=== PATIENT | female | born 1955 | race Caucasian/White ===

== ENCOUNTER 2017-03-22 06:50 | Day surgery (SDC) | payer BC ==
--- NOTE | 2017-02-20 12:02 | HP ---
Chief Complaint - Chief Complaint Date of Service: 02/20/17 Chief Complaint: need a colonoscopy History of Present Illness: 61 yo female who has a family history of three maternal uncles and aunts with colon cancer and a cousin. She has had a colonoscopy many years ago and had polyps removed. Follow up scope was negative. She does not believe she has had one for over ten years. No changes in BMs and no blood in stools. No weight loss. - Patient's Past Medical History Patient History - Medical: Headache, Osteoarthritis - but not diagnosed, Other - right shoulder torn rotator cuff Patient History - Cardiac/Respiratory: No pertinent hx Patient History - Cancer: No Hx of Cancer Patient History - Surgical Procedures: Cholecystectomy - 25 years ago, Colonoscopy, Tubal Ligation Patient History - Other: None LMP (females 10-50): Menopausal - Family History Family History:: no untoward family reactions to anesthesia, no familial bleeding tendencies, no family history of clotting disorders, no family history of premature - Family History Mother Family History - Medical: Family History - Cardiac/Respiratory: Myocardial Infarction Father Family History - Medical: Family History - Cancer: Lung - Social History Abuse History: No History of abuse Psych History: No pertinent hx Does anyone smoke in the home?: No Smoking Status: Never smoker Alcohol Use: occasionally Drug Use: none - Immunizations Immunizations Up to Date: Yes Hx Pneumococcal Vaccination: Yes History of Influenza Vaccine: Yes Review Of Systems (GEN) - Review of Systems Generalized/Overall Review: Absent: Weakness, Chills, Fever, Malaise, Diaphoresis, Fatigue, Weight loss EENTM: Absent: Tearing, Double Vision, Nose Congestion, Throat Swelling Respiratory: Absent: Shortness of Breath, Stridor, Wheezing Cardiac: Absent: Chest Pain, Edema, Palpitations Abdominal: Absent: Nausea, Hematemesis, Abdominal Pain, Constipation, Diarrhea, Bright blood from rectum Genitourinary: Absent: Burning, Itching, Urgency, Frequency Musculoskeletal: Present: Joint Pain, Back Pain. Absent: Joint Swelling, Muscle Pain, Neck Pain Neurological: Absent: Headache, Anxiety, Depressed, Emotional Problems Skin: Absent: Dryness, Lesions, Rash Allergies/Adverse Reactions: Allergies Allergy/AdvReac Type Severity Reaction Status Date / Time No Known Allergies Allergy Unverified 02/14/17 10:36 Home Medications: HOME MEDICATIONS NK [No Home Medication] 02/14/17 [Last Taken Unknown] Exam - Exam Vital Signs: Ht 158cm Wt 87 kg BP 122/80 HR 75 Afebrile Constitutional: Present: Alert, Oriented x3, Cooperative, No distress, Overweight, Looks Younger than stated age ENT Exam: Present: normal ENT inspection, hearing grossly normal Eye Exam: bilateral eye: normal inspection Breasts: Present: Exam deferred Respiratory: Present: lungs clear, normal breath sounds, no respiratory distress , no accessory muscle use Cardiovascular/Chest: Present: normal peripheral pulses, regular rate, rhythm, no edema, no JVD, no murmur Abdomen: Present: Normal bowel sounds, soft, nontender /Rectal: Present: Exam deferred Extremity: Present: normal range of motion, non-tender Skin Exam: Present: normal color, warm/dry Neurologic: Present: no motor/sensory deficits, alert, normal mood/affect Appearance: Present: appropriate appearance, appropriate insight, neat, no memory impairment Eye contact: Present: cooperative, good eye contact, normal speech Thoughts: Present: normal thought pattern, no apparent hallucination Assessment/Plan - Narrative Narrative: She needs a colonoscopy. RBIC discussed. SUPREP discussed. Scheduled at her convenience. Booklet reviewed and given. Consent signed. - Assessment/Plan (1) Colon cancer screening Problem: Acute (2) Family history of colon cancer Problem: Chronic (3) Rotator cuff (capsule) sprain Problem: Acute Qualifiers: Laterality: right
[~2017-03-22 06:50] MED LIST: RINGER'S SOLUTION,LACTATED 1,000 ML IV PRN
[2017-03-22] MEDS ORDERED: RINGER'S SOLUTION,LACTATED 1,000 ML IV ONE (08:02)
[2017-03-22] MEDS ORDERED: RINGER'S SOLUTION,LACTATED 1,000 ML IV PRN (08:29)
--- NOTE | 2017-03-22 08:32 | OR ---
Operative Report - Dictated Report Narrative: DATE OF PROCEDURE: 03/22/2017 PREOPERATIVE DIAGNOSIS: #1 Screening colonoscopy #2 family history colon cancer POSTOPERATIVE DIAGNOSIS: #1 Screening colonoscopy #2 scattered sigmoid diverticulosis OPERATION: Colonoscopy SURGEON: Jitendra Leon M.D. [facility] ANESTHESIA : Cyndee Sharif CRNA sedation INDICATIONS: This is 61 year old female who presents for a screening colonoscopy. I have discussed the risks, benefits, indications, and contraindications for colonoscopy with the possibility of biopsy and/or polypectomy. She understands, agrees, and wishes to proceed. She has undergone a SUPREP and has tolerated it well. PROCEDURE: The patient was brought to the operating theater and placed into the left lateral decubitus position. The patient underwent sedation per anesthesia , and a digital rectal exam was performed. This was noted to be unremarkable. The patient was noted to have no internal or external hemorrhoids. The Olympus video colonoscope was introduced and advanced into the rectum. The rectum was normal in appearance. The scope was then advanced through the sigmoid, where some scattered diverticular disease was noted. The scope was then advanced to the cecum using standard reduction techniques. The appendiceal orifice was noted. The ileocecal valve was noted. The prep appeared to be excellent with a Fabens prep score of 9. The scope was withdrawn slowly as the ascending, transverse, descending, and sigmoid colon were examined in a circumferential fashion. The scope was brought back into the rectum where it was retroflexed in the lower rectum was examined. The air was decompressed, and the scope was then removed. Withdrawal time was 7 minutes. POSTOPERATIVE CONDITION: The patient was awakened and taken to the ambulatory surgery center in good condition. No complications were encountered. FINDINGS: Scattered diverticulosis, no signs of polyps or tumors Specimens: None EBL: 0 The findings were discussed with the patient. I recommend a follow-up colonoscopy in 5 years for screening purposes. Diverticulosis booklet was reviewed and given to patient.
[2017-03-22 09:18] VITALS: BP 127/78
== END 2017-03-22 06:51 | disposition home or self-care (01) ==
LOC: AMB 06:50
PROVIDERS: ATTEND Surgery
PROC: 0DJD8ZZ Inspection of Lower Intestinal Tract, Via Natural or Artificial Opening Endoscopic (ICD-10-PCS; principal; 2017-03-22 08:05)
DX: Z12.11 Encounter for screening for malignant neoplasm of colon (principal); K57.30 Diverticulosis of large intestine without perforation or abscess without bleeding; Z80.0 Family history of malignant neoplasm of digestive organs; Z68.34 Body mass index [BMI] 34.0-34.9, adult

== ENCOUNTER 2017-09-08 09:51 | Emergency (ER) | payer BC ==
--- NOTE | 2017-09-08 10:25 | ERNOTE ---
Dizziness ER Record Date of Service: 09/08/17 Presenting Symptoms: dizziness, other - Headache Time Seen by Provider: 09/08/17 10:04 Source: patient, family, old records Exam Limitations: no limitations Immunizations: IMMUNIZATION HX Immunizations Up to Date No History of Influenza Vaccine No Hx Pneumococcal Vaccination No Allergies/Adverse Reactions: Allergies Allergy/AdvReac Type Severity Reaction Status Date / Time No Known Allergies Allergy Verified 09/08/17 10:05 Home Medications: HOME MEDICATIONS NK [No Home Medication] 09/08/17 [Last Taken Unknown] - History of Present Illness Narrative: Patient states since Saturday evening she has had a headache 05/30 in the back of her head with dizziness. States everytime she gets up or moves her head too quickly the room will begin spinning. Date (Duration): 09/06/17 Timing and Duration: cannot confirm onset Episodes lasting:: Headache and dizziness has lasted since that time. Noted on awakening:: No Severity: max: severe Severity: currently: moderate Associated Symptoms: Present: headache, light headedness, none Sense of movement: Present: spinning Decreased ability to stand/walk:: Present: off balance Usually:: Present: walks w/o assistance Modifying Factors - (Improves): Reports: nothing Modifying Factors - (Worsens): Reports: changing position, movement of head Review of Systems - Narrative Narrative: Denies any ear pain, dyspnea, CP, or abdominal pain. States her vision is blurred with quick movements of her head lasting seconds. States she has not had a headache since her stroke this past summer and just feels as if something is not right. Describes the headache as a throbbing in the back of her head. Does not go down into the neck. Denies any fever or muscle aches. - Review of Systems Constitutional: Present: no symptoms reported EYE: Present: blurred vision, other - Only with quick movement. ENT: Present: no symptoms reported Respiratory: Present: no symptoms reported Cardiology: Present: no symptoms reported Gastrointestinal/Abdominal: Present: no symptoms reported Genitourinary: Present: no symptoms reported Musculoskeletal: Present: no symptoms reported Skin: Present: no symptoms reported Neurological: Present: headache, other - Constant dizziness with the room spinning when she moves her body or head suddenly. Endocrine: Present: no symptoms reported, other Hematologic/Lymphatic: Present: no symptoms reported - Patient's Past Medical History Patient History - Medical: GERD, Headache, Kidney stone, Osteoarthritis Patient History - Cardiac/Respiratory: CVA/Stroke Patient History - Cancer: No Hx of Cancer Patient History - Surgical Procedures: Cholecystectomy, Colonoscopy, Total Knee Replacement, Tubal Ligation, T & A Patient History - Other: None LMP (females 10-50): post - Family History Mother Family History - Medical: , Diabetes Type 2 Family History - Cardiac/Respiratory: Arrhythmias, Hypertension, Myocardial Infarction Family History - Cancer: No pertinent family hx Father Family History - Medical: , Arthritis Family History - Cardiac/Respiratory: No pertinent hx Family History - Cancer: Lung Brother Family History - Medical: No pertinent hx Family History - Cardiac/Respiratory: No pertinent hx Family History - Cancer: No pertinent family hx Sister Family History - Medical: No pertinent hx Family History - Cardiac/Respiratory: No pertinent hx Family History - Cancer: No pertinent family hx - Social History Living Situations: home Abuse History: No History of abuse Psych History: No pertinent hx Smoking Status: Never smoker Alcohol Use: occasionally Drug Use: none - Immunizations Immunizations Up to Date: No Hx Pneumococcal Vaccination: No History of Influenza Vaccine: No Physical Exam - Physical Exam General Appearance: Present: wd/wn, alert, other - More of a flat affect possibly residual from previous stroke. Head Exam: Present: normal inspection, no evidence of injury, no tenderness w palpation Eye Exam: Normal inspection: bilateral, PERRL: bilateral, EOMI: bilateral Neck: Present: normal inspection, nontender, supple, full range of motion Respiratory: Present: no respiratory distress, normal breath sounds, no accessory muscle use, chest nontender, lungs clear Cardiovascular/Chest: Present: regular rate, rhythm, no murmur, normal peripheral pulses Peripheral Pulses: N=norm/S=strong/W=weak/B=bound/A=absent: Radial (R): Normal, Radial (L): Normal Gastrointestinal/Abdominal: Present: normal bowel sounds, nontender, nondistended, soft Back Exam: Present: no vertebral tenderness Extremity Exam: Present: normal inspection, normal range of motion Neurological Exam: Present: alert, oriented, normal mood/affect, no motor/ sensory deficits, mastercam programmer II-XII nml as tested Skin Exam: Present: normal color, warm/dry ED Progress - Results and Orders Patient's Lab Results:: I have reviewed the patient's lab results. - Vital Signs Patient's Vital Signs:: I have reviewed the patient's vital signs. Vital Signs: Vital Signs 09/08/17 10:00 Temperature 37.1 C Pulse Rate 79 Respiratory 17 Rate Blood Pressure 135/79 O2 Sat by Pulse 100 Oximetry - CT/Ultrasound CT/Ultrasound Narrative: Head CT negative for acute findings. Chronic changes present. Read by radiologist reviewed by me. - Progress/Reassessment Chief Complaint: Dizziness Progress:: Improved Progress Note-Subjective: 09/08/17 12:40 States both headache and dizziness have improved with interventions. Departure Clinical Impression: Dizziness Headache Qualifiers: Headache type: tension-type Headache chronicity pattern: acute headache Intractability: not intractable Qualified Code(s): G44.209 - Tension-type headache, unspecified, not intractable - Departure Disposition: Home Follow Up Needed Condition: Good Additional Instructions: No evidence of any findings that explain your current symptoms of headache and dizziness. Hopefully isolated event that will resolve. However if they are persistent I would like for you to follow up with your family provider for additional evaluation. For the dizziness may take over the counter meclizine 25mg every 8 hrs as needed but may make you drowsy so take with caution. For the headache continue treating aggressively with straight ibuprofen/tylenol or may try the excedrin migraine. Again if you worsen or develope additional complications let us know. Referrals: Shania Dominguez, [Primary Care Provider] -
[2017-09-08] MEDS ORDERED: MECLIZINE HCL 25 MG TABLET PO ONE (10:33)
[2017-09-08] MEDS ORDERED: MECLIZINE HCL 25 MG TABLET ONE (10:34)
[2017-09-08 11:05] LABS: Urine Appearance Clear; Urine Bilirubin Negative (NEGATIVE); Urine Color Yellow; Urine Ketone Negative (NEGATIVE); Urine Protein Negative (NEGATIVE); Urine Specific Gravity 1.005 SP.GR. (1.005-1.010); Urine Urobilinogen Normal (NORMAL)
[2017-09-08 11:06] LABS: Urine Nitrite Negative (NEGATIVE)
[2017-09-08 11:07] LABS: Urine Bacteria None Seen; Urine Blood 25 /ul (NEGATIVE); Urine RBC 0-5 /hpf (0-5); Urine WBC 0-5 /hpf (0-5)
[2017-09-08 11:09] LABS: Albumin * 3.9 gm/dl (3.4-5.0); Anion Gap 13.9 mmol/L (6.8-13.8); BUN/Creatinine Ratio 22.4 (9.0-21.6); Bilirubin, Total 0.5 mg/dL (0.0-1.1); Ca. Corrected For Albumin 9.1 mg/dL (8.4-10.2); Calcium * 9.3 mg/dL (7.9-10.9); Carbon Dioxide 26.8 mmol/L (24-32.6); Hematocrit 45.5 % (37.0-47.0); Hemoglobin 14.9 gm/dL (12.5-16.0); Mean Corpuscular Hemoglobin 28.2 pg (27-31); Mean Corpuscular Hgb Conc 32.7 g/dl (32-36); Mean Platelet Volume 10.7 fl (6.0-9.5); Neutrophil # 6.6 K/mm3 (1.3-6.0); Neutrophil % 78.6 % (42-75.0); Platelet Count 195 K/mm3 (150-450); Potassium 3.7 mmol/L (3.4-4.6); Red Blood Count 5.29 M/mm3 (4.2-5.4); Red Cell Distribution Width 12.8 % (11.5-14.0); Total Protein 8.3 gm/dL (6.2-8.2); White Blood Count 8.4 K/mm3 (4.0-10.5)
[2017-09-08 11:12] VITALS: BP 139/93
[2017-09-08] MEDS ORDERED: KETOROLAC TROMETHAMINE 60 MG/2 ML VIAL IM ONE ×2 (11:43→12:04)
== END 2017-09-08 12:56 | disposition home or self-care (01) ==
LOC: ER 09:51
DX: R42 Dizziness and giddiness (principal); G44.209 Tension-type headache, unspecified, not intractable